=== PATIENT | male | born 1980 | race Caucasian/White ===

== ENCOUNTER 2016-03-29 02:35 | Inpatient (IN) | payer BC, MEDICAID ==
[~2016-03-29] VITALS: Ht 185.4 cm; Wt 83.5 kg
[2016-03-29] VITALS (8 sets, daily range): BP systolic 124–136; RESP 16–20; TEMP 97.4–97.8; Ht 185.4 cm; Wt 83.5 kg
[2016-03-29] MEDS ORDERED: OPTIRAY 350 100 ML VIAL HMH IV ONE (02:36)
[2016-03-29] MEDS ORDERED: ONDANSETRON 4 MG VIAL ONE (05:45)
[2016-03-29] MEDS ORDERED: MORPHINE 4 MG/ML SYR ONE (05:52)
[2016-03-29] MEDS ORDERED: SODIUM CHLORIDE 0.9% 1,000 ML ONE ×2 (06:23→08:16)
[2016-03-29] MEDS ORDERED: ALU/MAG/SIM 30 ML UDC PO PRN (08:15)
[2016-03-29] MEDS ORDERED: DILAUDID 1 MG/ML AMP ONE (08:15)
[2016-03-29] MEDS ORDERED: GUAIFEN/DM 10 ML UDC PO PRN (08:15)
[2016-03-29] MEDS ORDERED: ACETAMINOPHEN 325 MG TAB PO PRN (08:15)
[2016-03-29] MEDS ORDERED: MAG HYDROX 30 ML UDC PO PRN (08:15)
[2016-03-29] MEDS ORDERED: BISACODYL 10 MG SUPP RECTAL PRN (08:15)
[2016-03-29] MEDS ORDERED: SALINE FLUSH 10 ML FLUSH PRN (08:15)
[2016-03-29] MEDS ORDERED: BISACODYL EC 5 MG TAB PO PRN (08:15)
[2016-03-29] MEDS: DEXTROSE 5% SALINE 0.9% 1,000 ML IV SCH ×2 (10:08→17:28)
[2016-03-29] MEDS: ONDANSETRON 4 MG VIAL IV PRN ×3 (10:19→18:52)
[2016-03-29] MEDS: OXYCODONE 5 MG TAB PO PRN ×3 (10:20→22:58)
[2016-03-29] MEDS: FAMOTIDINE 20 MG INJ IV SCH ×2 (10:45→20:31)
[2016-03-29] MEDS: ENOXAPARIN 40 MG/0.4 ML SYR SUBQ SCH (10:46)
[2016-03-29] MEDS: METHYLPRED SOD SUCC 125 MG/2 ML VIAL IV SCH ×3 (11:26→23:01)
[2016-03-29] MEDS: DILAUDID 1 MG/ML AMP IV PRN ×4 (11:27→20:35)
[2016-03-29] MEDS: SALINE FLUSH 10 ML FLUSH SCH (20:35)
[2016-03-30] MEDS: DILAUDID 1 MG/ML AMP IV PRN ×7 (00:28→21:13)
[2016-03-30] MEDS: DEXTROSE 5% SALINE 0.9% 1,000 ML IV SCH ×3 (03:20→20:38)
[2016-03-30 04:02] VITALS: BP_SYST 127; RESP 20; TEMP 97.7
[2016-03-30] MEDS: NICOTINE 21 MG/24 HR TRANSDERM PRN (04:16)
[2016-03-30] MEDS: SODIUM CHLORIDE 0.9% FLUSH BAG 500 ML IV SCH (05:36)
[2016-03-30] MEDS: METHYLPRED SOD SUCC 125 MG/2 ML VIAL IV SCH ×4 (05:37→23:19)
[2016-03-30] MEDS: OXYCODONE 5 MG TAB PO PRN ×5 (05:38→23:19)
[2016-03-30] MEDS: SALINE FLUSH 10 ML FLUSH SCH ×2 (07:36→19:54)
[2016-03-30] MEDS: ONDANSETRON 4 MG VIAL IV PRN (07:36)
[2016-03-30] MEDS: FAMOTIDINE 20 MG INJ IV SCH ×2 (07:41→19:54)
[2016-03-30 07:59] VITALS: BP_SYST 130
[2016-03-30 08:00] VITALS: RESP 20; TEMP 97.6
[2016-03-30] MEDS: ENOXAPARIN 40 MG/0.4 ML SYR SUBQ SCH (09:23)
[2016-03-30 10:46] VITALS: BP_SYST 137; RESP 16; TEMP 97.3
[2016-03-30 19:05] VITALS: BP_SYST 127; RESP 16; TEMP 97.4
[2016-03-30 23:07] VITALS: BP_SYST 123; RESP 16; TEMP 97.2
[2016-03-31] VITALS (7 sets, daily range): BP systolic 135–147; RESP 20; TEMP 97.2–98.3
[2016-03-31] MEDS: DILAUDID 1 MG/ML AMP IV PRN ×7 (00:39→22:17)
[2016-03-31] MEDS: OXYCODONE 5 MG TAB PO PRN ×5 (03:26→20:47)
[2016-03-31] MEDS: DEXTROSE 5% SALINE 0.9% 1,000 ML IV SCH ×2 (05:06→14:56)
[2016-03-31] MEDS: METHYLPRED SOD SUCC 125 MG/2 ML VIAL IV SCH ×4 (05:06→23:51)
[2016-03-31] MEDS: SODIUM CHLORIDE 0.9% FLUSH BAG 500 ML IV SCH (06:00)
[2016-03-31] MEDS: SALINE FLUSH 10 ML FLUSH SCH ×2 (08:00→20:00)
[2016-03-31] MEDS: FAMOTIDINE 20 MG INJ IV SCH ×2 (08:53→20:40)
[2016-03-31] MEDS: ENOXAPARIN 40 MG/0.4 ML SYR SUBQ SCH (08:54)
[2016-03-31] MEDS: NICOTINE 21 MG/24 HR TRANSDERM PRN (08:55)
[2016-04-01] MEDS: DEXTROSE 5% SALINE 0.9% 1,000 ML IV SCH ×2 (00:07→09:36)
[2016-04-01 02:52] VITALS: BP_SYST 116; TEMP 97.6
[2016-04-01 02:53] VITALS: RESP 20
[2016-04-01] MEDS: OXYCODONE 5 MG TAB PO PRN ×3 (04:55→13:01)
[2016-04-01] MEDS: SODIUM CHLORIDE 0.9% FLUSH BAG 500 ML IV SCH (06:00)
[2016-04-01] MEDS: METHYLPRED SOD SUCC 125 MG/2 ML VIAL IV SCH ×2 (06:40→11:11)
[2016-04-01 07:38] VITALS: BP_SYST 139; RESP 18; TEMP 97.9
[2016-04-01] MEDS ORDERED: MISSING DOSE XX ONE (08:20)
[2016-04-01] MEDS: FAMOTIDINE 20 MG INJ IV SCH (08:23)
[2016-04-01] MEDS: SALINE FLUSH 10 ML FLUSH SCH (08:23)
[2016-04-01] MEDS: ENOXAPARIN 40 MG/0.4 ML SYR SUBQ SCH (08:57)
[2016-04-01] MEDS: NICOTINE 21 MG/24 HR TRANSDERM PRN (08:58)
[2016-04-01 10:52] VITALS: BP_SYST 127; RESP 18; TEMP 97.5
[2016-04-01] MEDS: DILAUDID 1 MG/ML AMP IV PRN (11:06)
[2016-04-01 12:53] VITALS: BP_SYST 127; RESP 18; TEMP 97.5
== END 2016-04-01 13:50 | disposition home or self-care (01) | DRG 386 ==
LOC: CANRESERV → ENRESERVTM → ENRESERVDT → ER 02:35 → ENPENDDIS 08:14 → EMR 08:14 → 3NT 09:52
PROVIDERS: ADMIT Family Medicine; ATTEND Family Medicine
CPT/HCPCS: 74020; 74177; 80074; 82652; 82728; 83540; 84466; 87385; 94799; 96361; 96374; 96375; 99223; 99232; 99239